=== PATIENT | female | born 1985 | race Caucasian/White ===

== ENCOUNTER 2016-06-17 07:43 | Emergency (ER) | payer MEDICAID ==
[~2016-06-17] VITALS: Ht 185.4 cm; Wt 77.0 kg
[~2016-06-17 07:43] MED LIST: CLIN150 PO; PROM1SUP9 RECTAL; ZOFR4TAB3 SL
[2016-06-17 07:49] VITALS: BP 120/84; PULSE 82; RESP 18; TEMP 97.8; O2SAT 97
[2016-06-17] MEDS ORDERED: ONDANSETRON HCL 4 MG/2 ML VIAL IV PUSH ONE (08:15)
[2016-06-17] MEDS ORDERED: SODIUM CHLOR 0.9% 1000 ML INJ 1,000 ML IV ONE (08:15)
[2016-06-17] MEDS ORDERED: KETOROLAC TROMETHAMINE 30 MG/ML (IVP) VIAL IV PUSH ONE (08:15)
[2016-06-17 08:35] LABS: AUTOMATED NEUTROPHIL # 4.5 TH/MM3 (1.8-7.7); BASOPHIL % 0.4 % (0.0-2.0); EOSINOPHIL # 0.1 TH/MM3 (0-0.4); EOSINOPHIL % 1.7 % (0.0-4.0); HEMATOCRIT 39.8 % (35.0-46.0); HEMO FLAGS DIFF FINAL; LYMPHOCYTE # 1.4 TH/MM3 (1.0-4.8); MEAN CELL VOLUME 91.1 FL (80.0-100.0); MEAN CORPUSCULAR HEMOGLOBIN 30.4 PG (27.0-34.0); MEAN CORPUSCULAR HGB CONC 33.3 % (32.0-36.0); MONO % 3.5 % (0.0-8.0); NEUT % 72.4 % (16.0-70.0); PLATELET COUNT 163 TH/MM3 (150-450); RED BLOOD COUNT 4.36 MIL/MM3 (4.00-5.30); WHITE BLOOD COUNT 6.2 TH/MM3 (4.0-11.0)
[2016-06-17 08:40] LABS: BLOOD, URINE NEG (NEG); GLUCOSE,URINE NEG (NEG); KETONE, URINE NEG (NEG); NITRITE,URINE NEG (NEG); PH, URINE 5.5 (5.0-8.5)
[2016-06-17 08:41] LABS: CHLORIDE 106 MEQ/L (98-107); POTASSIUM 4.1 MEQ/L (3.5-5.1); SODIUM (NA) 142 MEQ/L (136-145)
[2016-06-17 08:45] LABS: ANION GAP 7 MEQ/L (5-15); BICARBONATE 28.8 MEQ/L (21.0-32.0); BLOOD UREA NITROGEN 11 MG/DL (7-18)
[2016-06-17 08:48] LABS: ALT (GPT) 19 U/L (10-53); AST (GOT) 22 U/L (15-37)
[2016-06-17 08:49] LABS: GLOMERULAR FILTRATION RATE 84 ML/MIN (>89)
[2016-06-17 08:50] LABS: TOTAL BILIRUBIN ADULT 0.8 MG/DL (0.2-1.0)
[2016-06-17 08:51] LABS: ALKALINE PHOSPHATASE 51 U/L (45-117)
[2016-06-17 08:52] LABS: METHOD OF COLLECTION CLEAN CATCH; URINE COLOR YELLOW (YELLW/STRAW)
[2016-06-17 08:53] LABS: BACTERIA, URINE OCC /hpf; COMMENT (UR) CULT NOT INDICATED; CULTURE IF INDICATED CULT NOT INDICATED; RBC, URINE 0-3 /hpf (0-3); SQUAMOUS EPITHELIAL CELL URINE > 8 /hpf (0-5); WBC, URINE 0-2 /hpf (0-5)
--- NOTE | 2016-06-17 09:03 | RADHPO ---
EXAM DATE/TIME: 06/17/2016 08:33 [place] COMPARISON: CHEST PA & LAT, January 31, 2015, 14:41. INDICATIONS : Cough. MEDICAL HISTORY : None. SURGICAL HISTORY : None. ENCOUNTER: Initial ACUITY: 1 month PAIN SCORE: 0/10 LOCATION: Bilateral chest FINDINGS: PA and lateral views of the chest demonstrate the lungs to be symmetrically aerated without evidence of mass, infiltrate or effusion. The cardiomediastinal contours are unremarkable. Osseous structure s are intact. CONCLUSION: No acute disease. Florentin Morgan MD FACR on June 17, 2016 at 9:01 Board Certified Radiologist. This report was verified electronically.
--- NOTE | 2016-06-17 09:13 | PD ---
HPI Chief Complaint: Cold / Flu Symptoms Time Seen by Provider: 07:52 Travel History International Travel<30 days: No Contact w/Intl Traveler<30days: No Traveled to known affect area: No History of Present Illness HPI Patient is a 31-year-old female who comes in complaining of congestion and diarrhea. She says she had a baby 6 weeks ago. She says prior to giving , she came into the hospital with similar symptoms. She says about a day or 2 ago she started to feel cold sweats and she was getting sick again. She says she has a cough. She denies fevers at home. She says she has just started having diarrhea last night, with 2 episodes total. She denies nausea or vomiting. She denies abdominal pain. She has taken Mucinex at home without much relief. PFSH Past Medical History Blood Disorders: No Anxiety: Yes Diminished Hearing: No Headaches: Yes Musculoskeletal: Yes (Chronic neck and low back pain, DDD, scoliosis ) Immunizations Current: Yes Tetanus Vaccination: Unknown Influenza Vaccination: No ?: Not LMP: Gave 6 weeks ago : 3 Para: 2 Miscarriage: 0 : 0 Dilation and Curettage (D&C): Yes (X's 3) Past Surgical History Surgical History: No Previous Surgery Family History Family Hypercholesterolemia: Yes (Father) Social History Alcohol Use: No Tobacco Use: No (FORMER) Substance Use: No Allergies-Medications (Allergen,Severity, Reaction): Coded Allergies: No Known Allergies (Verified , 06/17/16) Reported Meds & Prescriptions Reported Meds & Active Scripts Active No Active Prescriptions or Reported Medications Review of Systems General / Constitutional: Positive: Chills, No: Fever HENT: Positive: Congestion, No: Headaches, Lightheadedness Cardiovascular: No: Chest Pain or Discomfort Respiratory: Positive: Cough, No: Shortness of Breath Gastrointestinal: Positive: Diarrhea, No: Nausea, Vomiting, Abdominal Pain Genitourinary: No: Dysuria, Discharge Musculoskeletal: No: Weakness Skin: No Rash, No Change in Pigmentation Neurologic: No: Weakness, Dizziness Physical Exam Narrative GENERAL: Awake and alert in no acute distress. SKIN: Warm and dry. HEAD: Atraumatic. Normocephalic. EYES: Pupils equal and round. No scleral icterus. ENT: Mucous membranes pink and moist. CARDIOVASCULAR: Regular rate and rhythm. No murmur appreciated. RESPIRATORY: No accessory muscle use. Clear to auscultation. Breath sounds equal bilaterally. GASTROINTESTINAL: Abdomen soft, non-tender, nondistended. NEUROLOGICAL: Awake and alert. No obvious cranial nerve deficits. Motor grossly within normal limits. Normal speech. Data Data Last Documented VS Vital Signs Date Time Temp Pulse Resp B/P Pulse Ox O2 Delivery O2 Flow Rate FiO2 06/17/16 07:55 16 97 Room Air 06/17/16 07:49 97.8 82 120/84 Orders Complete Blood Count With Diff (06/17/16 08:04) Comprehensive Metabolic Panel (06/17/16 08:04) Urinalysis - C+S If Indicated (06/17/16 08:04) Ed Urine Pregnancytest Poc (06/17/16 08:04) Chest, Pa & Lat (06/17/16 ) Ketorolac Inj (Toradol Inj) (06/17/16 08:15) Ondansetron Inj (Zofran Inj) (06/17/16 08:15) Sodium Chlor 0.9% 1000 Ml Inj (Ns 1000 M (06/17/16 08:15) Labs Laboratory Tests Test 06/17/16 06/17/16 08:25 08:30 Urine Collection Type CLEAN CATCH Urine Color YELLOW Urine Turbidity CLEAR Urine pH 5.5 Urine Specific Banks 1.017 Urine Protein NEG mg/dL Urine Glucose (UA) NEG mg/dL Urine Ketones NEG mg/dL Urine Occult Blood NEG Urine Nitrite NEG Urine Bilirubin NEG Urine Leukocyte Esterase NEG Urine RBC 0-3 /hpf Urine WBC 0-2 /hpf Urine Squamous Epithelial > 8 /hpf Cells Urine Bacteria OCC /hpf Microscopic Urinalysis Comment CULT NOT INDICATED Urine Collection Time 08:25 White Blood Count 6.2 TH/MM3 Red Blood Count 4.36 MIL/MM3 Hemoglobin 13.3 GM/DL Hematocrit 39.8 % Mean Corpuscular Volume 91.1 FL Mean Corpuscular Hemoglobin 30.4 PG Mean Corpuscular Hemoglobin 33.3 % Concent Red Cell Distribution Width 13.0 % Platelet Count 163 TH/MM3 Mean Platelet Volume 8.5 FL Neutrophils (%) (Auto) 72.4 % Lymphocytes (%) (Auto) 22.0 % Monocytes (%) (Auto) 3.5 % Eosinophils (%) (Auto) 1.7 % Basophils (%) (Auto) 0.4 % Neutrophils # (Auto) 4.5 TH/MM3 Lymphocytes # (Auto) 1.4 TH/MM3 Monocytes # (Auto) 0.2 TH/MM3 Eosinophils # (Auto) 0.1 TH/MM3 Basophils # (Auto) 0.0 TH/MM3 CBC Comment DIFF FINAL Differential Comment Sodium Level 142 MEQ/L Potassium Level 4.1 MEQ/L Chloride Level 106 MEQ/L Carbon Dioxide Level 28.8 MEQ/L Anion Gap 7 MEQ/L Blood Urea Nitrogen 11 MG/DL Creatinine 0.80 MG/DL Estimat Glomerular Filtration 84 ML/MIN Rate Random Glucose 98 MG/DL Calcium Level 8.9 MG/DL Total Bilirubin 0.8 MG/DL Aspartate Amino Transf 22 U/L (AST/SGOT) Alanine Aminotransferase 19 U/L (ALT/SGPT) Alkaline Phosphatase 51 U/L Total Protein 7.0 GM/DL Albumin 3.7 GM/DL [facility] Medical Decision Making Medical Screen Exam Complete: Yes Emergency Medical Condition: Yes Medical Record Reviewed: Yes Differential Diagnosis URI versus internal rate is versus viral illness versus pneumonia Narrative Course Patient is a 31-year-old female comes in complaining of congestion and diarrhea. Exam shows no acute abnormalities. IV established, labs sent. Labs show no acute abnormalities. Chest x-ray performed shows no acute abnormalities. Patient given IV fluids, Zofran, Toradol. She reports feeling better. Patient advised she does not need an antibiotic at this time. Advised to rest, drink plenty of fluids. Advised to take Claritin or nasal decongestant as well as the Mucinex for symptomatic relief. Advised to take Tylenol or ibuprofen as needed. Advised to eat a bland diet. Advised follow- up with her primary care doctor. Advised to return to the ED as needed for any worsening symptoms. Diagnosis Primary Impression: Viral syndrome Patient Instructions: General Instructions, Viral Syndrome (ED) Additional Instructions: Drink plenty of fluids. Eat a bland diet. Take over the counter decongestants for symptomatic relief. Follow up with your doctor. Return to the ED as needed for any worsening symptoms. Scripts No Active Prescriptions or Reported Meds Disposition: 01 DISCHARGE HOME Condition: Stable Janki Metz MD Jun 17, 2016 09:12
[2016-06-17 09:32] VITALS: BP 137/91; PULSE 55; RESP 17; O2SAT 100
== END 2016-06-17 09:40 | disposition home or self-care (01) ==
LOC: PHED 07:43
DX: B34.9 Viral infection, unspecified (principal); R05 Cough; G89.29 Other chronic pain
CPT/HCPCS: 71020; 80053; 81001; 84703; 85025; 96361; 96374; 96375; 99284; J1885; J2405; J7030

== ENCOUNTER 2016-10-09 00:54 | Emergency (ER) | payer MEDICAID ==
[~2016-10-09] VITALS: Ht 185.4 cm; Wt 74.7 kg
[2016-10-09 00:59] VITALS: BP 109/62; PULSE 90; RESP 12; TEMP 97.8; O2SAT 95
[2016-10-09] MEDS ORDERED: PREN29TA PO (01:14)
[2016-10-09] MEDS ORDERED: RESP: ALBUTEROL 2.5 MG/IPRATROPIUM 0.5 MG NEB (SCH) INH (01:30)
--- NOTE | 2016-10-09 01:33 | PD ---
HPI Chief Complaint: Cold / Flu Symptoms Time Seen by Provider: 01:15 Travel History International Travel<30 days: No Contact w/Intl Traveler<30days: No Traveled to known affect area: No History of Present Illness HPI The patient is a 31-year-old female that complains of cough, wheezing for 2 weeks. She denies any fever. She is not really short of breath and does not have any chest pain. She is 11 weeks . The cough is productive of yellow sputum. PFSH Past Medical History Blood Disorders: No Anxiety: Yes Diminished Hearing: No Headaches: Yes Musculoskeletal: Yes (Chronic neck and low back pain, DDD, scoliosis ) Immunizations Current: Yes Tetanus Vaccination: < 5 Years Influenza Vaccination: No ?: LMP: Jul 24 : 4 Para: 3 Miscarriage: 0 : 0 Dilation and Curettage (D&C): Yes (X's 3) Family History Family Hypercholesterolemia: Yes (Father) Social History Alcohol Use: No Tobacco Use: No (FORMER) Substance Use: No Allergies-Medications (Allergen,Severity, Reaction): Coded Allergies: No Known Allergies (Verified , 06/17/16) Reported Meds & Prescriptions Reported Meds & Active Scripts Active Reported Plus Iron 29-1 mg ( Vit-Iron Carbonyl) 1 Tab Tab 1 Tab PO DAILY Review of Systems Except as stated in HPI: all other systems reviewed are Neg Physical Exam Narrative GENERAL: Well-nourished, well-developed patient in minimal respiratory distress with her wheezing. Her vital signs are normal, oximetry is 95% on room air. SKIN: Focused skin assessment warm/dry. HEAD: Normocephalic. EYES: No scleral icterus. No injection or drainage. NECK: Supple, trachea midline. No JVD or lymphadenopathy. CARDIOVASCULAR: Regular rate and rhythm without murmurs, gallops, or rubs. RESPIRATORY: Breath sounds equal bilaterally. No accessory muscle use. There are bilateral wheezes present in all lung mallory, these are only heard when the patient uses somewhat forced expiration. Her lungs are clear at regular breathing. GASTROINTESTINAL: Abdomen soft, non-tender, nondistended. MUSCULOSKELETAL: No cyanosis, or edema. BACK: Nontender without obvious deformity. No CVA tenderness. Data Data Last Documented VS Vital Signs Date Time Temp Pulse Resp B/P Pulse Ox O2 Delivery O2 Flow Rate FiO2 10/09/16 01:10 20 10/09/16 00:59 97.8 90 109/62 95 Orders Influenzae A/B Antigen (10/09/16 01:23) Albuterol-Ipratropium Neb (Duoneb Neb) (10/09/16 01:30) Azithromycin (Zithromax) (10/09/16 02:15) MDM Medical Decision Making Medical Screen Exam Complete: Yes Emergency Medical Condition: Yes Medical Record Reviewed: Yes Interpretation(s) The influenza A/B antigen is negative for flu a and flu B antigen. Differential Diagnosis Acute asthma, bronchitis, pneumonia, viral syndrome Narrative Course The patient appears to have bronchitis with bronchospasm. Plan: She will be getting Zithromax for 5 days total and follow-up with her magnet valve assembler. She wants steroids and I went over some of the literature with her and if her magnet valve assembler okay steroids and she should have steroids. Diagnosis Primary Impression: Bronchitis with bronchospasm Additional Impression: First trimester Additional Instructions: The Zithromax prescription is 500 mg daily for 4 days, we gave you the first dose here to make a total of 5 days. Drink plenty of liquids and breathe and steam so that you cough out the secretions. This may help you sleep pattern night. Follow-up with your magnet valve assembler as soon as possible. Med/Other Pt SpecificInfo: Prescription(s) given Scripts Azithromycin (Zithromax)500 Mg [id number] Mg PO DAILY 4 Days Ref 0 Prov:Medardo Watt MD 10/09/16 Disposition: 01 DISCHARGE HOME Condition: Stable Medardo Watt MD October 09, 2016 01:33
[2016-10-09] MEDS ORDERED: AZITHROMYCIN 250 MG TAB PO ONE (02:15)
[2016-10-09] MEDS ORDERED: ZITH500T PO (02:22)
== END 2016-10-09 02:29 | disposition home or self-care (01) ==
LOC: PHED 00:54
DX: O99.511 Diseases of the respiratory system complicating pregnancy, first trimester (principal); J40 Bronchitis, not specified as acute or chronic; O99.341 Other mental disorders complicating pregnancy, first trimester; F41.9 Anxiety disorder, unspecified; Z3A.11 11 weeks gestation of pregnancy; Z87.891 Personal history of nicotine dependence
CPT/HCPCS: 87804; 94664; 99283

== ENCOUNTER 2018-07-22 07:40 | Inpatient (IN) ==
[2018-07-22] MEDS ORDERED: Sodium Chlor 0.9% Inj 500 ML IV.SIG PRN (07:58)
[2018-07-22] MEDS ORDERED: fentaNYL Citrate Inj 100 MCG/2 ML Ampul IV.PUSH PRN ×2 (07:58)
[2018-07-22] MEDS ORDERED: Naloxone Inj 0.4 MG/ML Vial IV.PUSH PRN ×2 (07:58→10:26)
[2018-07-22] MEDS ORDERED: Oxytocin 30 Units/500ml Premix 30 UNITS/500 ML BAG IV.SIG ONE (07:58)
[2018-07-22] MEDS ORDERED: Sod Chloride 0.9% Inj 1,000 ML IV.CONT PRN (07:58)
[2018-07-22] MEDS ORDERED: Citric Acid/Sodium Citrate Liq 30 ML UDC PO SCH (08:00)
--- NOTE | 2018-07-22 08:05 | ED ---
History of Present Illness Primary Care Physician: No Primary Care Physician Chief Complaint: Contractions History of Present Illness: 33-year-old at 38 weeks and 3 days presents with contractions. She stated that her contractions started yesterday afternoon. She was seen here in triage and at that time was at 2 cm and 40%. She was sent home. She states that the contractions increased in frequency and intensity. She states her contractions are about 5 minutes apart. She denies any loss of fluid or vaginal bleeding. She states she is still feeling baby move frequently. She denies any fevers, nausea, vomiting, headache, edema, chest pain, or shortness of breath. She has been sweating a lot since the contractions. She has has been feeling a little dizzy. She has had some leg pain but not in her calves. She denies any complications with this and has been seeing Dr. Penn for care. She states she is GBS negative (confirmed in [place]). Her last ultrasound was April 07 and baby was cephalic at start of exam and breech at the end of the exam. 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 Last 2 pregnancies were a little bit after 37 weeks and vaginal. Past medical history: None Surgical history: None Meds: vitamins Allergies: None Social: Smokes marijuana intermittently. Smokes one half a pack per day. Denies any alcohol or other drug use. Weeks Gestation:: 38 Para: 5 : 4 Review of Systems Constitutional: Denies chills, Denies fever(s) Eyes: Denies change in vision Ears, Nose, Mouth, and Throat: Reports dizziness Cardiovascular: Denies chest pain Respiratory: Denies shortness of breath Gastrointestinal: Denies nausea, Denies vomiting Genitourinary: Denies painful urination, Denies urinary urgency Musculoskeletal: Reports muscle cramps, Denies back pain Skin/Breast: Denies rash Neurologic: Reports dizziness, Denies headache(s) Endocrine: Reports excessive sweating Hematologic/Lymphatic: Denies easy bruising Allergic/Immunologic: Denies hives PMFSH - History History Provided By: Patient - Medical History Medical History: Medical History (Last Reviewed 06/30/18 @ 10:30 by Javier Arrington) No significant medical problems - Surgical History Surgical History: Surgical History (Last Reviewed 06/30/18 @ 10:30 by Javier E Lightburn) No history of previous surgery - Tobacco History Smoking Status: Light tobacco smoker Tobacco Type: Cigarettes - Alcohol History How Often Do You Have a Drink Containing Alcohol: Never - Substance Use History Substance History: No History of Abuse - Travel History History of Recent Travel: No Medications and Allergies Allergies Allergy/AdvReac Type Severity Reaction Status Date / Time No Known Allergies Allergy Verified 06/30/18 10:20 Home Medications Medication Instructions Recorded Confirmed Type vit,[id number] 1 tab PO DAILY 07/22/18 07/22/18 History [PNV 29-1] Exam Narrative: GENERAL: Well-nourished, well-developed patient. SKIN: Warm and dry. HEAD: Normocephalic and atraumatic. EYES: No scleral icterus. No injection or drainage. ENT: No nasal drainage noted. Mucous membranes pink. Airway patent. NECK: Supple, trachea midline. No JVD. CARDIOVASCULAR: Regular rate and rhythm without murmurs, gallops, or rubs. RESPIRATORY: Breath sounds equal bilaterally. No accessory muscle use. BREASTS: Bilateral exam showed no masses , no retractions, no nipple discharge. ABDOMEN/GI: Abdomen soft, non-tender, bowel sounds present, no rebound, no guarding GENITOURINARY: External Genitalia: intact and normal in appearance Dilatation: 7 Effacement: 70 Station: 0 Membranes: intact Uterine Contractions: 5-7 minutes FHT's: Category: 1 Baseline: 135 Reactive: yes Variability: moderate Decels: no EXTREMITIES: No cyanosis or edema. BACK: Nontender without obvious deformity. No CVA tenderness. NEUROLOGICAL: Awake and alert. Motor and sensory grossly within normal limits. Five out of 5 muscle strength in all muscle groups. Normal speech. Results - Labs CBC & Chem 7: 07/22/18 08:05 Assessment and Plan - Diagnosis (1) Uterine contractions during Code(s): O62.2 - Other uterine inertia Status: Acute (2) 38 weeks gestation of Code(s): Z3A.38 - 38 weeks gestation of Status: Acute - Plan 33-year-old female at 38 weeks and 3 days presents with contractions. Cervical exam /0. -Admit to Labor and Delivery -Routine antepartum and labor care -CBC, UA, ABO/rH -NPO -US to confirm presentation Patient discussed with Dr. Jeffries Discharge Plan - Discharge Disposition Patient Disposition: 02 Transfer To [facility] [place] Condition Condition: Stable - Physicians Team Primary Care Provider: Primary Care Libia Ryan Attending Provider: Alfonso Jeffries
[2018-07-22 08:22] LABS: Baso # (Auto) 0.1 th/mm3 (0.0-0.2); Baso % (Auto) 0.6 % (0.0-2.0); Eos # (Auto) 0.1 th/mm3 (0.0-0.4); Eos % (Auto) 0.9 % (0.0-4.0); Hematocrit 33.2 % (35.0-46.0); Hemoglobin 11.9 gm/dL (11.6-15.3); Lymph # (Auto) 1.7 th/mm3 (1.0-4.8); Lymph % (Auto) 15.8 % (9.0-44.0); Mean Corpuscular HGB Conc 35.8 % (32.0-36.0); Mean Corpuscular Hemoglobin 32.1 pg (27.0-34.0); Mean Corpuscular Volume 89.7 fL (80.0-100.0); Mean Platelet Volume 9.4 fL (7.0-11.0); Mono # (Auto) 0.6 th/mm3 (0.0-0.9); Mono % (Auto) 5.1 % (0.0-8.0); Neut # (Auto) 8.4 th/mm3 (1.8-7.7); Neut % (Auto) 77.6 % (16.0-70.0); Platelet Count 137 th/mm3 (150-450); Red Cell Distribution Width 12.5 % (11.6-17.2); White Blood Count 10.8 th/mm3 (4.0-11.0)
[2018-07-22] MEDS ORDERED: fentaNYL 2MCG-Bupiv 0.125% Epi 150 ML EPIDURAL ONE (08:26)
--- NOTE | 2018-07-22 09:01 | P.HPOB ---
History of Present Illness Primary Care Physician: No Primary Care Physician Chief Complaint: Contractions History of Present Illness: 33-year-old at 38 weeks and 3 days presents with contractions. She stated that her contractions started yesterday afternoon. She was seen here in triage and at that time was at 2 cm and 40%. She was sent home. She states that the contractions increased in frequency and intensity. She states her contractions are about 5 minutes apart. She denies any loss of fluid or vaginal bleeding. She states she is still feeling baby move frequently. She denies any fevers, nausea, vomiting, headache, edema, chest pain, or shortness of breath. She has been sweating a lot since the contractions. She has has been feeling a little dizzy. She has had some leg pain but not in her calves. She denies any complications with this and has been seeing Dr. Penn for care. She states she is GBS negative (confirmed in [place]). Her last ultrasound was April 07 and baby was cephalic at start of exam and breech at the end of the exam. 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 Last 2 pregnancies were a little bit after 37 weeks and vaginal. Past medical history: None Surgical history: None Meds: vitamins Allergies: None Social: Smokes marijuana intermittently. Smokes one half a pack per day. Denies any alcohol or other drug use. Weeks Gestation:: 38 Para: 5 : 4 Review of Systems Constitutional: Denies chills, Denies fever(s) Eyes: Denies change in vision Ears, Nose, Mouth, and Throat: Reports dizziness Cardiovascular: Denies chest pain Respiratory: Denies shortness of breath Gastrointestinal: Denies nausea, Denies vomiting Genitourinary: Denies painful urination, Denies urinary urgency Musculoskeletal: Reports muscle cramps, Denies back pain Skin/Breast: Denies rash Neurologic: Reports dizziness, Denies headache(s) Endocrine: Reports excessive sweating Hematologic/Lymphatic: Denies easy bruising Allergic/Immunologic: Denies hives PMFSH - History History Provided By: Patient - Medical History Medical History: Medical History (Last Reviewed 06/30/18 @ 10:30 by Javier Arrington) No significant medical problems - Surgical History Surgical History: Surgical History (Last Reviewed 06/30/18 @ 10:30 by Javier E Lightburn) No history of previous surgery - Tobacco History Smoking Status: Light tobacco smoker Tobacco Type: Cigarettes - Alcohol History How Often Do You Have a Drink Containing Alcohol: Never - Substance Use History Substance History: No History of Abuse - Travel History History of Recent Travel: No Medications and Allergies Allergies Allergy/AdvReac Type Severity Reaction Status Date / Time No Known Allergies Allergy Verified 06/30/18 10:20 Home Medications Medication Instructions Recorded Confirmed Type vit,[id number] 1 tab PO DAILY 07/22/18 07/22/18 History [PNV 29-1] Exam Narrative: GENERAL: Well-nourished, well-developed patient. SKIN: Warm and dry. HEAD: Normocephalic and atraumatic. EYES: No scleral icterus. No injection or drainage. ENT: No nasal drainage noted. Mucous membranes pink. Airway patent. NECK: Supple, trachea midline. No JVD. CARDIOVASCULAR: Regular rate and rhythm without murmurs, gallops, or rubs. RESPIRATORY: Breath sounds equal bilaterally. No accessory muscle use. BREASTS: Bilateral exam showed no masses , no retractions, no nipple discharge. ABDOMEN/GI: Abdomen soft, non-tender, bowel sounds present, no rebound, no guarding GENITOURINARY: External Genitalia: intact and normal in appearance Dilatation: 7 Effacement: 70 Station: 0 Membranes: intact Uterine Contractions: 5-7 minutes FHT's: Category: 1 Baseline: 135 Reactive: yes Variability: moderate Decels: no EXTREMITIES: No cyanosis or edema. BACK: Nontender without obvious deformity. No CVA tenderness. NEUROLOGICAL: Awake and alert. Motor and sensory grossly within normal limits. Five out of 5 muscle strength in all muscle groups. Normal speech. Results - Labs CBC & Chem 7: 07/22/18 08:05 Assessment and Plan - Diagnosis (1) Uterine contractions during Code(s): O62.2 - Other uterine inertia Status: Acute (2) 38 weeks gestation of Code(s): Z3A.38 - 38 weeks gestation of Status: Acute - Plan 33-year-old female at 38 weeks and 3 days presents with contractions. Cervical exam /0. -Admit to Labor and Delivery -Routine antepartum and labor care -CBC, UA, ABO/rH -NPO -US to confirm presentation Patient discussed with Dr. Jeffries Discharge Plan - Discharge Disposition Patient Disposition: 02 Transfer To [facility] [place] Condition Condition: Stable - Physicians Team Primary Care Provider: Primary Care Libia Ryan Attending Provider: Alfonso Jeffries
[2018-07-22] MEDS ORDERED: Lidocaine PF 1% Inj 5 ML Vial ONE (10:24)
[2018-07-22] MEDS ORDERED: Sodium Chlor 0.9% Inj 10 ML ONE (10:24)
[2018-07-22] MEDS ORDERED: Lidocaaine 1.5%/Epinephrine 1:200,000 PF Inj 5 ML Amp ONE (10:25)
[2018-07-22] MEDS ORDERED: Benzocaine 20% Top Spray 60 ML Can TOPICAL PRN (10:26)
[2018-07-22] MEDS ORDERED: Bisacodyl 10 MG Supp RECTAL PRN (10:26)
[2018-07-22] MEDS ORDERED: Acetaminophen 325 MG Tablet PO PRN (10:26)
[2018-07-22] MEDS ORDERED: Oxytocin 30 Units/500ml Premix 30 UNITS/500 ML BAG IV.CONT PRN (10:26)
[2018-07-22] MEDS ORDERED: Witch Hazel 50%/Glyderin 12.5% 40 Pad Jar RECTAL PRN (10:26)
--- NOTE | 2018-07-22 10:33 | P.OBDELI ---
Weeks Gestation: 38 Patient Started Active Labor: Yes Medical Induction of Labor: No Artificial Rupture of Membrane: Yes Anesthesia: Epidural Episiotomy: none Vaginal Delivery: Normal Presentation: Occiput posterior Nuchal Cord: Other (upper right extremity) Delayed Cord Clamping (45 sec): Yes Placenta: Spontaneous delivery Laceration: None Estimated blood loss (mL): 150 Infant: Male male Delivery Date: 07/22/18 Delivery Time: 10:16 score (1 min): 8 score (5 min): 9 Additional Information: Head delivered by maternal effort. Head direct OP. Cord around upper extremity loose and repositioned. Shoulders delivered without complications. Placenta delivered without complication. No lacerations. Attending present Dr. Paula for delivery
[2018-07-22 10:59] LABS: Bilirubin,Urine Negative (Negative); Clarity,Urine Hazy (Clear); Color,Urine Yellow (Yellw/Straw); Glucose,Urine (UA) Negative (Negative); Leukocyte Esterase,Urine Negative (Negative); Mucus,Urine Moderate /lpf (Occasional); Nitrite,Urine Negative (Negative); Specific Gravity,Urine 1.024 (1.002-1.035); Squamous Epithelial Cell,Urine 5 /hpf (0-5)
[2018-07-22] MEDS ORDERED: fentaNYL 2MCG-Bupiv 0.125% Epi 150 ML EPIDURAL PRN (12:00)
[2018-07-22] MEDS ORDERED: fentaNYL Citrate Inj 100 MCG/2 ML Ampul EPIDURAL ONE (12:00)
[2018-07-22] MEDS ORDERED: Diphtheria/Tetanus/Pertussis Vaccine Inj 0.5 ML Syringe IM ONE (16:00)
[2018-07-22] MEDS ORDERED: Measles/Mumps/Rubella Vaccine Inj 0.5 ML Vial SQ ONE (16:00)
[2018-07-22] MEDS ORDERED: Zolpidem Tartrate 5 MG Tablet PO PRN (21:00)
[2018-07-22 21:54] VITALS: RESP 18
[2018-07-22] MEDS: Senna/Docusate Sodium 8.6/50 MG Tablet PO SCH (22:35)
[2018-07-23] MEDS ORDERED: Ketorolac 10 MG Tablet PO PRN (08:32)
--- NOTE | 2018-07-23 08:40 | P.PNOB ---
Subjective Post day: 1 Interval history: Patient is a 33-year-old delivered at 38 weeks and 3 days. Patient is day 1 after . Patient's pain is well-controlled. She states she is having some left side abdominal muscle soreness. Patient reports eating and drinking without any nausea or vomiting. Patient reports minimal bleeding. Patient has passed gas but no bowel movements. Patient is walking without lower extremity pain or shortness of breath. Patient reports formula-feeding. Objective Vital Signs/I&O: Vital Signs 07/22/18 08:40 07/22/18 08:43 07/22/18 08:56 Temperature Pulse Rate 67 78 Respiratory Rate 17 Blood Pressure 119/72 105/65 07/22/18 09:05 07/22/18 09:15 07/22/18 09:20 Temperature Pulse Rate 69 74 65 Respiratory Rate 18 Blood Pressure 100/72 99/60 L 07/22/18 09:25 07/22/18 10:10 07/22/18 10:30 Temperature Pulse Rate 86 70 76 Respiratory Rate 18 Blood Pressure 107/51 L 07/22/18 10:44 07/22/18 11:01 07/22/18 11:15 Temperature 97.5 F L Pulse Rate 76 148 H Respiratory Rate 17 18 Blood Pressure 92/64 L 100/46 L 07/22/18 11:45 07/22/18 12:00 07/22/18 20:00 Temperature 99.1 F Pulse Rate 63 69 Respiratory Rate 17 18 Blood Pressure 106/68 112/66 Intake & Output 07/22/18 07/23/18 07/23/18 18:59 06:59 18:59 Weight 83.007 kg Other: Weight On Admission 83.007 kg Result Diagrams: 07/22/18 08:05 Objective Remarks: GENERAL: Well-nourished, well-developed patient. CARDIOVASCULAR: Regular rate and rhythm without murmurs, gallops, or rubs. RESPIRATORY: Breath sounds equal bilaterally. No accessory muscle use. ABDOMEN/GI: Abdomen soft, non-tender. Fundus: Firm, non-tender at umbilicus. GENITOURINARY: Light to moderate bleeding. EXTREMITIES: No cyanosis or edema, non-tender, without signs of DVT. Medications and IVs: Active Medications Acetaminophen (Tylenol) 650 mg PO Q4H PRN PRN Reason: PAIN SCALE 1 TO 2 Last Admin: 07/22/18 14:30 Dose: 650 mg Al Hydroxide/Mg Hydroxide (Milk Of Magnesia Liq) 30 ml PO Q12H PRN PRN Reason: Mild Constipation Benzocaine (Americaine 20% [place]) 1 spray TOPICAL Q4H PRN PRN Reason: For Perineum Discomfort Bisacodyl (Dulcolax Supp) 10 mg RECTAL DAILY PRN PRN Reason: SEVERE CONSITIPATION Ephedrine Sulfate (Ephedrine/Ns Syringe) 10 mg IV.PUSH UNSCH PRN PRN Reason: SEE LABEL COMMENTS Stop: 07/23/18 11:30 Oxytocin (Pitocin 30 Units/Ns 500 Ml Premix) 30 units in 500 mls @ 100 mls/hr IV.CONT UNSCH PRN PRN Reason: Heavy bleeding Last Admin: 07/22/18 12:49 Dose: 100 mls/hr Fentanyl/Bupivacaine/Sodium Chlor (Fentanyl 2 Mcg-Bupiv 0.125% Epi) 150 mls @ 12 mls/hr EPIDURAL PRN PRN PRN Reason: for Labor Pain Ibuprofen (Motrin) 800 mg PO Q8H PRN PRN Reason: For Cramping Last Admin: 07/23/18 08:15 Dose: 800 mg Lactulose (Lactulose Liq) 30 ml PO DAILY PRN PRN Reason: SEVERE CONSITIPATION Miscellaneous Information (Misc Information) 1 each OTHER UNSCH PRN PRN Reason: SEE LABEL COMMENTS Stop: 07/23/18 11:30 Miscellaneous Information (Misc Information) 1 each OTHER UNSCH PRN PRN Reason: SEE LABEL COMMENTS Stop: 07/23/18 11:30 Naloxone HCl (Narcan Inj) 0.1 mg IV.PUSH Q2M PRN PRN Reason: for opiate reversal Ondansetron HCl (Zofran Odt) 4 mg PO Q6H PRN PRN Reason: NAUSEA OR VOMITING Senna/Docusate Sodium (Lisandra-Colace) 1 tab PO BID [facility] Last Admin: 07/22/18 22:35 Dose: 1 tab Sennosides (Senokot) 17.2 mg PO Q12H PRN PRN Reason: Moderate Constipation Sodium Chloride (Ns Flush) 2 ml IV.FLUSH BID [facility] Last Admin: 07/22/18 22:32 Dose: Not Given Sodium Chloride (Ns Flush) 2 ml IV.FLUSH PRN PRN PRN Reason: FLUSH AFTER USING IV ACCESS Witch Hermelinda/Glycerin (Tucks Pads) 1 applicatio RECTAL QID PRN PRN Reason: HEMORRHOIDS Zolpidem Tartrate (Ambien) 5 mg PO HS PRN PRN Reason: SLEEP Assessment and Plan - Diagnosis (1) Uterine contractions during Code(s): O62.2 - Other uterine inertia Status: Acute (2) 38 weeks gestation of Code(s): Z3A.38 - 38 weeks gestation of Status: Acute - Plan Patient is a 33-year-old delivered at 38 weeks and 3 days. Patient is day 1 after . Patient was counseled to do 6 weeks of pelvic rest. Patient was counseled to follow up in 6 weeks. --AF VSS --Continue routine care --Toradol and Tylenol when necessary for pain --Encourage OOB --Pelvic rest for 6 weeks will need follow-up appointment at that time. --Contraception: will be having surgery. --Anticipate discharge today or tomorrow Patient discussed with Dr. Paula
[2018-07-23 09:37] VITALS: BP 124/73
[2018-07-23 09:38] VITALS: PULSE 68; TEMP 97.9
[2018-07-23] MEDS: Senna/Docusate Sodium 8.6/50 MG Tablet PO SCH (10:29)
== END 2018-07-23 12:16 | disposition home or self-care (01) | DRG 807 ==
LOC: HOBED 07:40 → H2E 07:58 → H1EA 12:09
PROVIDERS: ADMIT Obstetrics & Gynecology Maternal & Fetal Medicine; ATTEND Obstetrics & Gynecology Maternal & Fetal Medicine
CPT/HCPCS: 59025; 80307; 81001; 85025; 86900; 86901; G0481; G0483; J2590